=== PATIENT | male | born 1955 | race Caucasian/White ===

== ENCOUNTER 2022-06-26 00:59 | Emergency (ER) | payer SELFPAY ==
[~2022-06-26] VITALS: Ht 180.3 cm; Wt 75.0 kg
[2022-06-26 01:14] VITALS: BP 141/93
[2022-06-26 01:44] LABS: BILIRUBIN,URINE NEGATIVE (NEGATIVE); CLARITY,URINE CLEAR; COLOR,URINE YELLOW; GLUCOSE, URINE (UA) NEGATIVE (NEGATIVE); KETONES,URINE NEGATIVE (NEGATIVE); LEUKOCYTE ESTERASE ,URINE NEGATIVE (NEGATIVE); NITRITE,URINE NEGATIVE (NEGATIVE); PH,URINE 5.5 (5-9); PROTEIN,URINE NEGATIVE (NEGATIVE)
[2022-06-26 01:53] LABS: BACTERIA,URINE TRACE /HPF; WBC,URINE 0-2 /HPF
[2022-06-26 01:55] LABS: AMPHETAMINE SCREEN, URINE NEGATIVE (NEGATIVE); BARBITURATE SCREEN URINE NEGATIVE (NEGATIVE); BENZODIAZEPINES SCREEN URINE NEGATIVE (NEGATIVE); CANNABINOID SCREEN, URINE POSITIVE (NEGATIVE); COCAINE SCREEN URINE NEGATIVE (NEGATIVE); METHADONE STAT NEGATIVE (NEGATIVE); OPIATE SCREEN URINE NEGATIVE (NEGATIVE); OXYCODONE STAT NEGATIVE (NEGATIVE); PROPOXYPHENE STAT NEGATIVE (NEGATIVE); TRICYCLIC ANTIDEPRESSANTS SCRE NEGATIVE (NEGATIVE)
[2022-06-26 02:00] LABS: BASOPHILS # (AUTO) 0.1 10^3/uL (0.0-0.1); BASOPHILS % (AUTO) 1 % (0-10); EOSINOPHILS # (AUTO) 0.2 10^3/uL (0.0-0.3); EOSINOPHILS % (AUTO) 2 % (0-10); HEMATOCRIT 47 % (40-54); HEMOGLOBIN 15.2 g/dL (13.3-17.7); LYMPHOCYTES # (AUTO) 2.1 10^3/uL (1.0-4.0); LYMPHOCYTES % (AUTO) 25 % (12-44); MEAN CORPUSCULAR HEMOGLOBIN 30 pg (25-34); MEAN CORPUSCULAR HGB CONC 33 g/dL (32-36); MEAN CORPUSCULAR VOLUME 91 fL (80-99); MONOCYTES # (AUTO) 0.5 10^3/uL (0.0-1.0); MONOCYTES % (AUTO) 6 % (0-12); NEUTROPHILS # (AUTO) 5.5 10^3/uL (1.8-7.8); NEUTROPHILS % (AUTO) 65 % (42-75); PLATELET COUNT 261 10^3/uL (130-400); WHITE BLOOD COUNT 8.4 10^3/uL (4.3-11.0)
[2022-06-26] MEDS ORDERED: KETOROLAC 30 MG/ML VIAL IVP ONE (02:00)
[2022-06-26 02:14] LABS: INR 0.9 (0.8-1.4); PROTHROMBIN TIME PATIENT 12.3 SEC (12.2-14.7)
[2022-06-26 02:18] LABS: ALANINE AMINOTRANSFERASE 38 U/L (0-55); ALBUMIN 4.5 GM/DL (3.2-4.5); ALKALINE PHOSPHATASE 93 U/L (40-136); AMYLASE 94 U/L (25-125); BILIRUBIN,TOTAL 0.4 MG/DL (0.1-1.0); BUN/CREATININE RATIO 16; CALCIUM 9.3 MG/DL (8.5-10.1); CARBON DIOXIDE 23 MMOL/L (21-32); CHLORIDE 102 MMOL/L (98-107); CREATINE KINASE 89 U/L (30-200); CREATININE SERUM 0.86 MG/DL (0.60-1.30); GFR ESTIMATED 97; GLUCOSE 102 MG/DL (70-105); MAGNESIUM 2.1 MG/DL (1.6-2.4); POTASSIUM 4.7 MMOL/L (3.6-5.0); SODIUM 136 MMOL/L (135-145); TOTAL PROTEIN 7.4 GM/DL (6.4-8.2)
[2022-06-26 02:25] LABS: CREATINE KINASE MB 1.4 NG/ML (<6.6)
--- NOTE | 2022-06-26 02:34 | ED Back Pain ---
General Chief Complaint: Back Problems Stated Complaint: FALL,BACK PAIN Nursing Triage Note: PT AMB TO ED BY POV WITH SON WITH C/O BACK INJURY. PT REPORTS HE FELL AND HIT BACK ON THE CORNER OF THE BED APPROX 1999 THIS EVENING. DESCRIBES PAIN BURNING AND RATES PAIN 7/10, 10/10 WITH MVMT. Source of Information: Patient (DIFFICULT HISTORIAN. SPEECH RAPID AND ERRATIC AND DIFFICULT TO UNDERSTAND. ) History of Present Illness Date Seen by Provider: Jun 26, 2022 Time Seen by Provider: 01:25 Initial Comments PT ARRIVES VIA POV WITH HIS SON PT STATES THAT AROUND 1999 TONIGHT, HE FELL AND LANDED ON THE CORNER OF A BED--PT AND SON ARE STAYING AT [facility] HE C/O PAIN TO RIGHT FLANK AREA--STATES IT IS A BURNING PAIN HE RATES PAIN 7/10 AT REST, 10/10 WITH MOVEMENT HE STATES HE TOOK 3 BABY ASPIRIN TONIGHT. HAS NOT TAKEN ANYTHING ELSE FOR PAIN NO NAUSEA/VOMITING/DIARRHEA NO DIFFICULTY URINATING NO DIFFICULTY BREATHING HE DENIES HITTING HIS HEAD OR HAVING LOSS OF CONSCIOUSNESS DENIES NECK PAIN NO PARESTHESIAS OR MOTOR DEFICITS. HE HAD A "FEW BEERS" TONIGHT HE DENIES DRUG USE HE STATES HIS ONLY MEDICAL PROBLEM IS HTN. HE IS TRAVELING WITH HIS SON, WHO TRAVELS FOR WORK. PT STATES HE IS FROM [place]. SON REPORTS THEY WILL BE GOING BACK ON THE OF THIS MONTH. Allergies and Home Medications Allergies Coded Allergies: No Known Drug Allergies (Unverified , 06/26/22) Review of Systems Constitutional: no symptoms reported EENTM: no symptoms reported Respiratory: no symptoms reported Cardiovascular: no symptoms reported Gastrointestinal: no symptoms reported Genitourinary: no symptoms reported Musculoskeletal: see HPI Skin: no symptoms reported Psychiatric/Neurological: No Symptoms Reported Past [place]-Oszxtc-Znzocs Hx Patient Social History Tobacco Use?: Yes Tobacco type used: Cigarettes Smoking Status: Current Everyday Smoker Use of E-Cig and/or Vaping dev: No Substance use?: Yes Substance type: Methamphetamine, Marijuana Alcohol Use?: Yes Alcohol type: Beer Alcohol Frequency: Daily Pt feels they are or have been: No Immunizations Up To Date Influenza Vaccine Up-to-Date: No; Not Current Past Medical History Surgery/Hospitalization HX: htn, hernia Surgeries: Yes (HERNIA REPAIR) Abdominal Respiratory: No Cardiac: Yes Hypertension Neurological: No Genitourinary: No Gastrointestinal: No Musculoskeletal: No Endocrine: No HEENT: No Cancer: No Psychosocial: No Integumentary: No Blood Disorders: No Family Medical History SOCIAL HISTORY: -SMOKES 1 PPD -REGULAR ETOH USE--WILL NOT STATE HOW MUCH HE NORMALLY DRINKS -PT DENIES DRUG USE, BUT UDS IS + FOR METHAMPHETAMINS AND MARIJUANA ON 06/26/22 Physical Exam Vital Signs Vital Signs - First Documented 06/26/22 01:14 Temp 36.0 Pulse 61 Resp 16 B/P (MAP) 141/93 (109) Pulse Ox 99 O2 Delivery Room Air Capillary Refill : Less Than 3 Seconds Height, Weight, BMI Height: '" Weight: lbs. oz. kg; 23.00 BMI Method: General Appearance: No Apparent Distress, WD/WN, Other (PT IS SITTING ON SIDE OF BED READING A BOOK, AND APPEARS CALM. THEN ON EXAM, PT IS TALKING RAPIDLY AND ERRATICALLY AND DIFFICULT TO KEEP ON SUBJECT AND WITH CONSTANT MOVEMENTS. MARKEDLY EXAGGERATED PAIN RESPONSE. PT WALKS UPRIGHT WITHOUT DIFFICULTY. ) HEENT: PERRL/EOMI, Other (POOR DENTITION) Neck: Full Range of Motion, Normal Inspection, Non Tender, Supple Cardiovascular: Regular Rate, Rhythm, No Murmur Respiratory: Normal Breath Sounds, No Accessory Muscle Use, No Respiratory Distress, Other (RIGHT POSTERIOR AND LATERAL LOWER RIB AREAS. NO CREPITANCE OR DEFORMITY OR SUB Q AIR. ) Gastrointestinal: Normal Bowel Sounds, Soft, Tenderness (RIGHT FLANK, AND ENTIRE RIGHT SIDE OF ABDOMEN TENDER. ) Back: No Vertebral Tenderness, CVA Tenderness (R), Other (NO EXTERNAL EVIDENCE OF TRAUMA ANYWHERE) Extremity: Normal Capillary Refill, Normal Inspection, Normal Range of Motion, Non Tender, No Calf Tenderness, No Pedal Edema Neurologic/Psychiatric: Alert, Oriented x3, No Motor/Sensory Deficits, operator/assistant foreman II- XII Norm as Tested Skin: Normal Color, Warm/Dry; No Rash; Other (NO EXTERNAL EVIDENCE OF TRAUMA ANYWHERE) Progress/Results/Core Measures Results/Orders Lab Results Laboratory Tests Test 06/26/22 01:40 06/26/22 01:53 Range/Units Urine Color YELLOW Urine Clarity CLEAR Urine pH 5.5 5-9 Urine Specific [place] 1.025 H 1.016-1.022 Urine Protein NEGATIVE NEGATIVE Urine Glucose (UA) NEGATIVE NEGATIVE Urine Ketones NEGATIVE NEGATIVE Urine Nitrite NEGATIVE NEGATIVE Urine Bilirubin NEGATIVE NEGATIVE Urine Urobilinogen 0.2 < = 1.0 MG/DL Urine Leukocyte Esterase NEGATIVE NEGATIVE Urine RBC (Auto) NEGATIVE NEGATIVE Urine RBC NONE /HPF Urine WBC 0-2 /HPF Urine Squamous Epithelial Cells 2-5 /HPF Urine Crystals NONE /LPF Urine Bacteria TRACE /HPF Urine Casts NONE /LPF Urine Mucus SMALL H /LPF Urine Culture Indicated NO Urine Opiates Screen NEGATIVE NEGATIVE Urine Oxycodone Screen NEGATIVE NEGATIVE Urine Methadone Screen NEGATIVE NEGATIVE Urine Propoxyphene Screen NEGATIVE NEGATIVE Urine Barbiturates Screen NEGATIVE NEGATIVE Ur Tricyclic Antidepressants Screen NEGATIVE NEGATIVE Urine Phencyclidine Screen NEGATIVE NEGATIVE Urine Amphetamines Screen NEGATIVE NEGATIVE Urine Methamphetamines Screen POSITIVE H NEGATIVE Urine Benzodiazepines Screen NEGATIVE NEGATIVE Urine Cocaine Screen NEGATIVE NEGATIVE Urine Cannabinoids Screen POSITIVE H NEGATIVE White Blood Count 8.4 4.3-11.0 10^3/uL Red Blood Count 5.16 4.30-5.52 10^6/uL Hemoglobin 15.2 13.3-17.7 g/dL Hematocrit 47 40-54 % Mean Corpuscular Volume 91 80-99 fL Mean Corpuscular Hemoglobin 30 25-34 pg Mean Corpuscular Hemoglobin Concent 33 32-36 g/dL Red Cell Distribution Width 13.6 10.0-14.5 % Platelet Count 261 130-400 10^3/uL Mean Platelet Volume 10.0 9.0-12.2 fL Immature Granulocyte % (Auto) 1 % Neutrophils (%) (Auto) 65 42-75 % Lymphocytes (%) (Auto) 25 12-44 % Monocytes (%) (Auto) 6 0-12 % Eosinophils (%) (Auto) 2 0-10 % Basophils (%) (Auto) 1 0-10 % Neutrophils # (Auto) 5.5 1.8-7.8 10^3/uL Lymphocytes # (Auto) 2.1 1.0-4.0 10^3/uL Monocytes # (Auto) 0.5 0.0-1.0 10^3/uL Eosinophils # (Auto) 0.2 0.0-0.3 10^3/uL Basophils # (Auto) 0.1 0.0-0.1 10^3/uL Immature Granulocyte # (Auto) 0.0 0.0-0.1 10^3/uL Prothrombin Time 12.3 12.2-14.7 SEC INR Comment 0.9 0.8-1.4 Activated Partial Thromboplast Time 29 24-35 SEC Sodium Level 136 135-145 MMOL/L Potassium Level 4.7 3.6-5.0 MMOL/L Chloride Level 102 98-107 MMOL/L Carbon Dioxide Level 23 21-32 MMOL/L Anion Gap 11 5-14 MMOL/L Blood Urea Nitrogen 14 7-18 MG/DL Creatinine 0.86 0.60-1.30 MG/DL Estimat Glomerular Filtration Rate 97 BUN/Creatinine Ratio 16 Glucose Level 102 70-105 MG/DL Calcium Level 9.3 8.5-10.1 MG/DL Corrected Calcium 8.9 8.5-10.1 MG/DL Magnesium Level 2.1 1.6-2.4 MG/DL Total Bilirubin 0.4 0.1-1.0 MG/DL Aspartate Amino Transf (AST/SGOT) 31 5-34 U/L Alanine Aminotransferase (ALT/SGPT) 38 0-55 U/L Alkaline Phosphatase 93 40-136 U/L Total Creatine Kinase 89 30-200 U/L Creatine Kinase MB 1.4 <6.6 NG/ML Myoglobin 40.4 10.0-92.0 NG/ML Total Protein 7.4 6.4-8.2 GM/DL Albumin 4.5 3.2-4.5 GM/DL Amylase Level 94 25-125 U/L Serum Alcohol < 10 <10 MG/DL My Orders Orders - NOEMI WADDELL DO Ed Iv/Invasive Line Start (06/26/22:) Monitor-Rhythm Ecg Trace Only (06/26/22:) Alcohol (06/26/22) Amylase (06/26/22) Cbc With Automated Diff (06/26/22) Comprehensive Metabolic Panel (06/26/22) Creatine Kinase (06/26/22:) Creatine Kinase Mb (06/26/22) Drug Screen Stat (Urine) (06/26/22) Magnesium (06/26/22:) Protime With Inr (06/26/22:) Partial Thromboplastin Time (06/26/22:) Ua Culture If Indicated (06/26/22) Myoglobin Serum (1/2/23 01:27) Ct Chest/Abdomen/Pelvis W (06/26/22 01:35) Chest 1 View, Ap/Pa Only (06/26/22 01:35) Ketorolac Injection (Toradol Injection) (06/26/22 02:00) Iohexol Injection (Omnipaque 350 Mg/Ml 1 (06/26/22 03:15) Sodium Chloride Flush (Catheter Flush Sy (06/26/22 03:15) Ns (Ivpb) (Sodium Chloride 0.9% Ivpb Bag (06/26/22 03:15) Medications Given in ED Current Medications Medications Dose Ordered Sig/Geoff Route Start Time Stop Time Status Last Admin Dose Admin Iohexol 100 ml ONCE ONCE IV 06/26/22 03:15 06/26/22 03:16 DC 06/26/22 03:04 80 ML Ketorolac Tromethamine 30 mg ONCE ONCE IVP 06/26/22 02:00 06/26/22 02:01 DC 06/26/22 01:59 30 MG Sodium Chloride 10 ml NEEDED PRN IV 06/26/22 03:15 06/26/22 03:04 10 ML Sodium Chloride 100 ml ONCE ONCE IV 06/26/22 03:15 06/26/22 03:16 DC 06/26/22 03:04 80 ML Vital Signs/I&O 06/26/22 01:14 Temp 36.0 Pulse 61 Resp 16 B/P (MAP) 141/93 (109) Pulse Ox 99 O2 Delivery Room Air Blood Pressure Mean: 109 Progress Progress Note : Progress Note GIVEN IV FLUIDS AND TORADOL NO RETURN FROM CT , PT I7 RESTING QUIETLY, RECLINING ON HIS BACK ON ER CART AND READING A BOOK. HE DOES NOT APPEAR TO BE IN ANY DISCOMFORT OR DISTRESS. Diagnostic Imaging Comments CXR---PENDING RADIOLOGIST REVIEW CT CHEST/ABDOMEN/PELVIS--PER [facility] VIA FAX AT Reviewed: Reviewed by Me Departure Impression Primary Impression: SELF REPORTED RIGHT FLANK INJURY Additional Impressions: Methamphetamine use Marijuana use Disposition: 01 HOME, SELF-CARE Condition: Stable Departure-Patient Inst. Decision time for Depature: 03:55 Referrals: NO,LOCAL PHYSICIAN (PCP/Family) Primary Care Physician Patient Instructions: Contusion (DC), Marijuana Use and Addiction (DC), Methamphetamine Add. Discharge Instructions: TYLENOL AND MOTRIN FOR PAIN FOLLOW UP WITH OF CHOICE NEEDED NO DRUGS NO ALCOHOL All discharge instructions reviewed with patient and/or family. Voiced understanding. NOEMI WADDELL DO Jun 26, 2022 02:34
[2022-06-26] MEDS ORDERED: IOHEXOL 350 MG/ML 100 ML (OMNIPAQUE 350) VIAL IV ONE (03:15)
[2022-06-26] MEDS ORDERED: CATHETER FLUSH 10 ML SYR IV PRN (03:15)
[2022-06-26] MEDS ORDERED: NS 100 ML (IVPB) BAG IV ONE (03:15)
--- NOTE | 2022-06-26 06:49 | Diagnostic Imaging Report ---
EXAMINATION: Chest 1 view HISTORY: Trauma. Chest pain. Fall. COMPARISON: None available. FINDINGS: The lung volumes are normal. No focal consolidation is seen. No large pleural effusion or pneumothorax is seen. The cardiomediastinal silhouette is normal in size and contour. No acute osseous abnormality is seen. IMPRESSION: 1. No acute pleuroparenchymal process. Dictated by: Dictated on workstation # [id number]
--- NOTE | 2022-06-26 06:51 | Diagnostic Imaging Report ---
EXAMINATION: CT chest, abdomen and pelvis with intravenous contrast. TECHNIQUE: Multiple contiguous axial images were obtained through the chest, abdomen and pelvis after the uneventful administration of intravenous contrast. All CT scans use one or more of the following dose optimizing techniques: automated exposure control, MA and/or KvP adjustment based on patient size and exam type or iterative reconstruction. HISTORY: Trauma. Fall. Chest and abdominal pain. Back pain. COMPARISON: None available. FINDINGS: CT CHEST: The heart size is within normal limits. No pericardial effusion is present. There is calcified aortic and coronary atherosclerotic plaque. There is no mediastinal, hilar, or axillary lymphadenopathy. Centrilobular emphysema is seen in the lungs. The lungs demonstrate no pulmonary nodules or masses. There are no focal areas of consolidation. No central endobronchial obstructing lesions are identified. There are no pleural effusions or pneumothorax. The osseous structures demonstrate no acute abnormalities. CT ABDOMEN AND PELVIS: The liver, spleen, pancreas, adrenal glands, and kidneys have an unremarkable appearance without acute abnormalities.. Simple cortical cysts are seen in both kidneys. The gallbladder is nondistended. There is no pathologically enlarged mesenteric or retroperitoneal adenopathy. The bowel loops are nondilated. The appendix is visualized in the right lower quadrant and has a normal appearance. There is no free fluid or free air. The osseous structures demonstrate no acute abnormalities. There is calcified aortic and iliac atherosclerotic plaque. Ureters and bladder have a normal appearance. There is no free air, loculated collection, or adenopathy in the pelvis. IMPRESSION: 1. No acute abnormalities in the chest, abdomen and pelvis. 2. Centrilobular emphysema. Agree with overnight report. Dictated by: Dictated on workstation # [id number]
== END 2022-06-26 04:05 | disposition home or self-care (01) ==
LOC: ER 01:06
DX: S39.91XA Unspecified injury of abdomen, initial encounter (principal); F15.90 Other stimulant use, unspecified, uncomplicated; F12.90 Cannabis use, unspecified, uncomplicated; F17.210 Nicotine dependence, cigarettes, uncomplicated; Z87.19 Personal history of other diseases of the digestive system; Z28.310 Unvaccinated for COVID-19; W18.30XA Fall on same level, unspecified, initial encounter; W22.03XA Walked into furniture, initial encounter; Y92.59 Other trade areas as the place of occurrence of the external cause
CPT/HCPCS: 71045; 71260; 74177; 80053; 80306; 81000; 82150; 82550; 82553; 83735; 83874; 85025; 85610; 85730; 93041; 99283; G0480; 36415; 80320